=== PATIENT | female | born 1955 | race Caucasian/White ===

== ENCOUNTER 2022-12-03 17:45 | Emergency (ER) | payer MEDICARE, BC ==
[~2022-12-03] VITALS: Ht 167.6 cm; Wt 50.8 kg
[2022-12-03 18:20] VITALS: BP 132/66
[2022-12-03] MEDS ORDERED: RABIES VACCINE (PCEC)/PF 1 EA KIT IM ONE ×2 (19:00→19:01)
[2022-12-03] MEDS ORDERED: AMOX/CLAVULANATE 875 MG TABLET PO ONE (19:00)
[2022-12-03] MEDS ORDERED: AMOX/CLAVULANATE 875 MG TABLET ONE (19:04)
[2022-12-03] MEDS ORDERED: AMOX-430 PO (19:07)
--- NOTE | 2022-12-03 19:28 | NUR ---
Patient discharged to home in stable condition. Written and verbal after care instructions given. Patient verbalizes understanding of instruction.
== END 2022-12-03 19:29 | disposition home or self-care (01) ==
LOC: ER 17:55
DX: M79.645 Pain in left finger(s) (principal); Z79.899 Other long term (current) drug therapy; Z88.1 Allergy status to other antibiotic agents; W53.21XA Bitten by squirrel, initial encounter; Y93.89 Activity, other specified; Y92.89 Other specified places as the place of occurrence of the external cause; Y99.8 Other external cause status

== ENCOUNTER 2022-12-10 10:41 | Emergency (ER) | payer MEDICARE, BC ==
[~2022-12-10] VITALS: Ht 167.6 cm; Wt 50.8 kg
[~2022-12-10 10:41] MED LIST: AMOX-430 PO
[2022-12-10 10:47] VITALS: BP 141/77
== END 2022-12-10 11:27 | disposition home or self-care (01) ==
LOC: ER 10:44
DX: S61.052A Open bite of left thumb without damage to nail, initial encounter (principal); Z79.899 Other long term (current) drug therapy; Z88.1 Allergy status to other antibiotic agents; W53.21XA Bitten by squirrel, initial encounter; Y93.89 Activity, other specified; Y92.89 Other specified places as the place of occurrence of the external cause; Y99.8 Other external cause status